=== PATIENT | male | born 1965 | race Caucasian/White ===

== ENCOUNTER 2016-11-20 16:44 | Emergency (ER) | payer MEDICAID, MEDICARE | END 2016-11-20 18:40 | disposition left against medical advice (07) | LOC: JP.ED 16:44 | DX: Z53.21 Procedure and treatment not carried out due to patient leaving prior to being seen by health care provider (principal) ==

== ENCOUNTER 2016-12-05 19:27 | Emergency (ER) | payer MEDICARE, MEDICAID ==
[2016-12-05 19:54] VITALS: BP 144/81
[2016-12-05] MEDS ORDERED: Acetaminophen/HYDROcodone 325-5 MG Tab PO ONE (20:38)
--- NOTE | 2016-12-05 20:46 | EDM.PDOC ---
ED HPI GENERAL MEDICAL PROBLEM - General Chief Complaint: General Stated Complaint: LEG/HIP PAIN Time Seen by Provider: 12/05/16 20:30 Source of Information: Reports: Patient History Limitations: Reports: No limitations - History of Present Illness INITIAL COMMENTS - FREE TEXT/NARRATIVE: right knee pain. this is a 51 year old male, who reports knee surgery on 2016, he had a total knee replacement. He ran out of pain pills, had been taking one hydrocodone two times a day, ran out of pills today. reports the surgery was good, except for a non healing area on the distal incision scar. Onset: gradual Duration: Week(s): Location: Reports: lower extremity, right Quality: Reports: Ache, Stabbing Severity: moderate Improves with: Reports: Medication Worsens with: Reports: Movement Context: Reports: Other (Right knee surgery) Associated Symptoms: Reports: denies other symptoms Treatments [employer]IAN: Reports: Acetaminophen knee Pain Score (Numeric/FACES): 5 - Related Data Allergies Allergy/AdvReac Type Severity Reaction Status Date / Time naproxen Allergy Severe Airway Verified 10/10/16 05:43 Tightness Penicillins Allergy Severe Airway Verified 10/10/16 05:43 Tightness Home Meds: Home Meds Albuterol Sulfate [Proair Hfa] 2 puff IH Q4HR PRN 07/15/14 [History] Chlorthalidone 25 mg PO DAILY 07/15/14 [History] Omeprazole [Prilosec] 20 mg PO DAILY 07/15/14 [History] Clopidogrel Bisulfate 1 tab PO DAILY 05/03/16 [History] Aspirin [Halfprin] 81 mg PO DAILY 09/06/16 [History] Cyclobenzaprine [Flexeril] 10 mg PO TID PRN 09/06/16 [History] Diclofenac Potassium [Cataflam] 50 mg PO TIDMEALS 09/06/16 [History] Potassium Chloride [Klor-Con 10] 40 meq PO DAILY 09/06/16 [History] SUMAtriptan [Imitrex] 50 mg PO ONETIME PRN 09/06/16 [History] Trolamine Salicylate [Pain Relieving] 85 gm TP ASDIRECTED 09/06/16 [History] atorvaSTATin [Lipitor] 40 mg PO BEDTIME 09/06/16 [History] Albuterol [Proventil] 2.5 mg INH QIDRT 10/06/16 [History] Cetirizine [ZyrTEC] 10 mg PO DAILY tablet 10/12/16 [Rx] Metoprolol Tartrate [Lopressor] 25 mg PO BID tablet 10/12/16 [Rx] Acetaminophen/HYDROcodone [[place] 325-5 MG] 1 tab PO Q4H PRN #90 tab 10/20/16 [Rx ] Aspirin/Calcium Carbonate/Mag [Aspirin Buffered 325 mg Tab] 325 mg PO DAILY #30 tablet 10/20/16 [Rx] Sulfamethoxazole/Trimethoprim [Bactrim Ds Tablet] 1 each PO BID #14 tablet 10/20 [Rx] Past Medical History HEENT History: Reports: Allergic rhinitis, Head, Impaired vision, Otitis media Other HEENT History: 1 week ago Cardiovascular History: Reports: Congenital septal defect, Heart murmur, High cholesterol, Hypertension, SOB on exertion, Stents Respiratory History: Reports: Asthma, Bronchitis, recurrent, COPD, Pneumonia, recurrent Gastrointestinal History: Reports: Colon polyp, GERD Musculoskeletal History: Reports: Arthritis, Back pain, chronic, Fracture, Osteoarthritis Neurological History: Reports: Concussion, Seizure, Other (see below) Other Neuro History: coma x2 1975 1976 Psychiatric History: Reports: Addiction, Anxiety Endocrine/Metabolic History: Reports: Obesity/BMI 30+ Dermatologic History: Reports: None - Infectious Disease History Infectious Disease History: Reports: Chicken pox - Past Surgical History Head Surgeries/Procedures: Reports: None HEENT Surgical History: Reports: Oral surgery, Other (see below) Other HEENT Surgeries/Procedures: shattered jaw-wired shut(1976) Other Cardiovascular Surgeries/Procedures: 2015 stent in right leg had blood clot GI Surgical History: Reports: None, Colonoscopy, EGD, Polypectomy Musculoskeletal Surgical History: Reports: Knee replacement Dermatological Surgical History: Reports: None Social & Family History - Family History Family Medical History: Noncontributory - Tobacco Use Smoking Status *Q: Current Every Day Smoker Years of Tobacco use: 20 Packs/Tins Daily: 0.5 Used Tobacco, but Quit: No Second Hand Smoke Exposure: Yes - Caffeine Use Caffeine Use: Reports: Coffee, Soda - Alcohol Use Days Per Week of Alcohol Use: 7 Number of Drinks Per Day: 4 Total Drinks Per Week: 28 - Recreational Drug Use Recreational Drug Use: No Drug Use in Last 12 Months: Yes Recreational Drug Type: Reports: Methamphetamine Other Recreational Drug Type: stopped 7 months ago Recreational Drug Use Frequency: Not Used In Over 6 Months Recreational Drug Last Use: 7 YEARS ED ROS GENERAL - Review of Systems Review Of Systems: ROS reveals no pertinent complaints other than HPI. ED EXAM, GENERAL - Physical Exam Exam: See Below Exam Limited By: No limitations General Appearance: alert, WD/WN, mild distress Eye Exam: bilateral eye: normal inspection Ears: normal external exam Nose: normal inspection Throat/Mouth: Normal inspection, Normal lips Head: atraumatic, normocephalic Neck: normal inspection Respiratory/Chest: no respiratory distress, lungs clear, normal breath sounds, no accessory muscle use Cardiovascular: normal peripheral pulses, regular rate, rhythm, no edema, no murmur, no rub Extremities: leg pain (well healed incision to right knee, with distal scab at tip of incision, no active drainage) Neurological: alert, oriented, normal gait, no motor/sensory deficits Psychiatric: normal affect, normal mood Skin Exam: Warm, Dry, Wound/incision (well healed incision noted. dry, clean and intact) Lymphatic: no adenopathy Course - Vital Signs Last Recorded V/S: Last Vital Signs Temp 37.3 C 12/05/16 19:58 Pulse 106 H 12/05/16 19:58 Resp 18 12/05/16 19:58 BP 144/81 H 12/05/16 19:58 Pulse Ox 96 12/05/16 19:58 - Orders/Labs/Meds Meds: Medications Discontinued Medications Generic Name Dose Route Start Last Admin Trade Name Marioq PRN Reason Stop Dose Admin Acetaminophen/Hydrocodone Bitart 1 tab 12/05/16 20:38 12/05/16 21:05 [place] 325-5 Mg PO 12/05/16 20:39 1 tab ONETIME ONE Administration Departure - Departure Time of Disposition: 21:06 Disposition: Home, Self-Care 01 Condition: good Clinical Impression: Knee pain, right anterior, Status post right knee replacement, Status post total right knee replacement Instructions: Knee Pain Referrals: Delroy Moya PA [Primary Care Provider] - Forms: ED Department Discharge Care Plan Goals: right anterior knee pain status post right knee replacement -hydrocodone 5-325mg one tablet every 4 to 6 hours as needed for pain #10 -rest -take medication as prescribed -return to clinic or ER for any fever 101, shaking chills, drainage from incision, increased redness or any concerns. Keep appointment with Orthopedics on . - Problem List & Annotations (1) Knee pain, right anterior SNOMED Code(s): 370719582 Code(s): M25.561 - PAIN IN RIGHT KNEE Status: Acute Priority: Medium (2) Status post total right knee replacement SNOMED Code(s): 9192053924918 Code(s): Z96.651 - PRESENCE OF RIGHT ARTIFICIAL KNEE JOINT Status: Acute Priority: Medium - Problem List Review Problem List Initiated/Reviewed/Updated: Yes - Assessment/Plan Plan: right anterior knee pain status post knee replacement -Hydrocodone 5-325mg one every 4 to 6 hrs as needed for pain #10 -rest -take medication as prescribed -return to clinic or ER for any fever 101, shaking chills, drainage from incision, increased redness or any concerns. Keep appointment with Orthopedics on .
== END 2016-12-05 21:06 | disposition home or self-care (01) ==
LOC: JP.ED 19:27
DX: M25.561 Pain in right knee (principal); E78.00 Pure hypercholesterolemia, unspecified; F17.210 Nicotine dependence, cigarettes, uncomplicated; K21.9 Gastro-esophageal reflux disease without esophagitis; Z96.651 Presence of right artificial knee joint; Z88.8 Allergy status to other drugs, medicaments and biological substances; Z88.0 Allergy status to penicillin; Z79.899 Other long term (current) drug therapy; Z79.82 Long term (current) use of aspirin; Z95.5 Presence of coronary angioplasty implant and graft
CPT/HCPCS: 99283; A9270

== ENCOUNTER 2016-12-17 19:28 | Emergency (ER) | payer MEDICARE, MEDICAID | END 2016-12-17 21:03 | disposition left against medical advice (07) | LOC: JP.ED 19:28 | DX: Z53.21 Procedure and treatment not carried out due to patient leaving prior to being seen by health care provider (principal) ==

== ENCOUNTER 2017-07-08 17:35 | Emergency (ER) | payer MEDICARE, MEDICAID ==
[2017-07-08] MEDS ORDERED: Ondansetron 4 MG/2 ML SDV IVPUSH ONE ×2 (18:17→18:20)
[2017-07-08] MEDS ORDERED: SUMAtriptan 6 MG/0.5 ML SDV SUBCUT ONE ×2 (18:21→20:16)
[2017-07-08] MEDS ORDERED: diphenhydrAMINE 50 MG/ML SDV IVPUSH ONE (18:23)
--- NOTE | 2017-07-08 18:28 | EDM.PDOC ---
ED HPI GENERAL MEDICAL PROBLEM - General Chief Complaint: Headache Stated Complaint: STOMACH ACHE AND THROWING UP Time Seen by Provider: 07/08/17 18:06 Source of Information: Reports: Patient History Limitations: Reports: No Limitations - History of Present Illness INITIAL COMMENTS - FREE TEXT/NARRATIVE: Jackson presents today with complaint of migraine headache starting at 1430 today. He states he was out in the yard doing yard work and developed a migraine to the frontal area of his head. He tried to lay down in the house but there were too many people in the house being loud and his migraine would not go away. He reports he has had migraines in the past that he took imitrex for. Onset: Today, Sudden Onset Date: 07/08/17 Onset Time: 14:30 Duration: Hour(s): Location: Reports: Head, Other (Across forehead) Quality: Reports: Ache, Throbbing Severity: Moderate Improves with: Reports: None Worsens with: Reports: None Headache Pain Score (Numeric/FACES): 10 - Related Data Allergies Allergy/AdvReac Type Severity Reaction Status Date / Time naproxen Allergy Severe Airway Verified 07/08/17 17:53 Tightness Penicillins Allergy Severe Airway Verified 07/08/17 17:53 Tightness Home Meds: Home Meds Albuterol Sulfate [Proair Hfa] 2 puff IH Q4HR PRN 07/15/14 [History] Omeprazole [Prilosec] 20 mg PO DAILY 07/15/14 [History] Clopidogrel Bisulfate 1 tab PO DAILY 05/03/16 [History] Aspirin [Halfprin] 81 mg PO DAILY 09/06/16 [History] Potassium Chloride [Klor-Con 10] 40 meq PO DAILY 09/06/16 [History] Trolamine Salicylate [Pain Relieving] 85 gm TP ASDIRECTED 09/06/16 [History] atorvaSTATin [Lipitor] 40 mg PO DAILY 09/06/16 [History] Albuterol [Proventil] 2.5 mg INH QIDRT 10/06/16 [History] Cetirizine [ZyrTEC] 10 mg PO DAILY tablet 10/12/16 [Rx] Metoprolol Tartrate [Lopressor] 25 mg PO BID tablet 10/12/16 [Rx] Acetaminophen/HYDROcodone [[place] 325-5 MG] 1 tab PO Q4H PRN #90 tab 10/20/16 [Rx ] Past Medical History HEENT History: Reports: Allergic Rhinitis, Head, Impaired Vision, Otitis Media Other HEENT History: 1 week ago Cardiovascular History: Reports: Congenital Septal Defect, Heart Murmur, High Cholesterol, Hypertension, SOB on Exertion, Stents Respiratory History: Reports: Asthma, Bronchitis, Recurrent, COPD, Pneumonia, Recurrent Gastrointestinal History: Reports: Colon Polyp, GERD Musculoskeletal History: Reports: Arthritis, Back Pain, Chronic, Fracture, Osteoarthritis Neurological History: Reports: Concussion, Migraines, Seizure, Other (See Below) Other Neuro History: coma x2 1976 1976 Psychiatric History: Reports: Addiction, Anxiety Endocrine/Metabolic History: Reports: Obesity/BMI 30+ Dermatologic History: Reports: None - Infectious Disease History Infectious Disease History: Reports: Chicken Pox - Past Surgical History HEENT Surgical History: Reports: Oral Surgery, Other (See Below) Cardiovascular Surgical History: Reports: Vascular Surgery, Other (See Below) Musculoskeletal Surgical History: Reports: Knee Replacement Dermatological Surgical History: Reports: None Social & Family History - Family History Family Medical History: Noncontributory - Tobacco Use Smoking Status *Q: Current Every Day Smoker Years of Tobacco use: 45 Packs/Tins Daily: 1 Used Tobacco, but Quit: No Second Hand Smoke Exposure: Yes - Caffeine Use Caffeine Use: Reports: Soda - Alcohol Use Days Per Week of Alcohol Use: 7 Number of Drinks Per Day: 4 Total Drinks Per Week: 28 - Recreational Drug Use Recreational Drug Use: Yes Drug Use in Last 12 Months: Yes Recreational Drug Type: Reports: Marijuana/Hashish Other Recreational Drug Type: stopped 7 months ago Recreational Drug Use Frequency: Not Used In Over 6 Months Recreational Drug Last Use: 7 YEARS ED ROS GENERAL - Review of Systems Review Of Systems: See Below Constitutional: Denies: Fever, Chills, Malaise, Weakness HEENT: Denies: Dental Pain, Ear Pain, Rhinitis, Sinus Problem, Throat Pain, Vertigo, Vision Change Respiratory: Denies: Shortness of Breath, Wheezing, Cough, Sputum Cardiovascular: Denies: Chest Pain, Dyspnea on Exertion, Edema, Lightheadedness , Palpitations, PND, Syncope Endocrine: Reports: No Symptoms GI/Abdominal: Reports: Nausea, Vomiting : Reports: No Symptoms Musculoskeletal: Reports: No Symptoms Skin: Reports: No Symptoms Neurological: Reports: Headache, Numbness, Tingling, Other (down bilateral arms. ) Psychiatric: Reports: No Symptoms Hematologic/Lymphatic: Reports: No Symptoms Immunologic: Reports: No Symptoms - Physical Exam Exam: See Below Text/Narrative:: Jackson is an alert, oriented 52 year old male presenting with sudden onset migraine to the frontal area today at 1430 while working in the yard. He denies trauma or injury. He has nausea, vomiting, photosensitivity and numbness/tingling to bilateral arms since vomiting started. Patient has extensive history including PAD, HTN, COPD, Dyslipidemia, Tobacco dependence, past methamphetamine use. Exam Limited By: No Limitations General Appearance: Alert, WD/WN, Moderate Distress Eye Exam: Bilateral Eye: EOMI, Normal Inspection, PERRL, Other (No nystagmus noted with position changes. ) Ears: Normal External Exam, Normal Canal, Hearing Grossly Normal, Normal TMs Nose: Normal Inspection, Normal Mucosa, No Blood Throat/Mouth: Normal Inspection, Normal Lips, Normal Oropharynx, Normal Voice, No Airway Compromise Head Exam: Atraumatic, Normocephalic Neck: Normal Inspection, Supple, Non-Tender, Full Range of Motion. No: Lymphadenopathy (R), Lymphadenopathy (L) Respiratory/Chest: No Respiratory Distress, No Accessory Muscle Use, Chest Non- Tender, Decreased Breath Sounds, Other (Scattered rhonchi noted) Cardiovascular: Normal Peripheral Pulses, Regular Rate, Rhythm, No Edema, No Murmur, No Rub GI/Abdominal: Normal Bowel Sounds, Soft, No Distention, No Mass, Other (large, obese, tenderness to LUQ with palpation) Neuro Exam (Abbreviated): Alert, Oriented, CN II-XII Intact, Normal Cognition, Normal Gait, No Motor/Sensory Deficits, Other (GCS 15, equal strength to all extremities. ) Back Exam: Normal Inspection, Full Range of Motion. No: CVA Tenderness (R), CVA Tenderness (L) Extremities: Normal Inspection, Normal Range of Motion, Non-Tender, No Pedal Edema, Normal Capillary Refill Psychiatric: Normal Affect, Normal Mood Skin Exam: Warm, Dry, Intact, Normal Color, No Rash EKG INTERPRETATION EKG Date: 07/08/17 Time: 18:30 Rhythm: NSR [place]: Normal P-Wave: Present QRS: Normal ST-T: Other (Slight depression lateral leads, similar to EKG completed on 2015) Course - Vital Signs Last Recorded V/S: Last Vital Signs Temp 36.3 C 07/08/17 20:28 Pulse 86 07/08/17 21:03 Resp 20 07/08/17 21:03 BP 133/77 07/08/17 21:03 Pulse Ox 94 L 07/08/17 21:03 - Orders/Labs/Meds Orders: Active Orders 24 hr Category Date Time Status EKG Documentation Completion [RC] ASDIRECTED Care 07/08/17 18:28 Active Head wo Cont [CT] Stat Exams 07/08/17 18:49 Taken EKG 12 Lead [EK] Routine Ther 07/08/17 18:28 Ordered Labs: Laboratory Tests 07/08/17 07/08/17 07/08/17 Range/Units 18:31 18:31 18:31 WBC 12.7 H (4.5-11.0) K/uL RBC 4.84 (4.30-5.90) M/uL Hgb 15.1 H D (12.0-15.0) g/dL Hct 44.1 (40.0-54.0) % MCV 91 (80-98) fL MCH 31 (27-31) pg MCHC 34 (32-36) % Plt Count 274 (150-400) K/uL Neut % (Auto) 70 H (36-66) % Lymph % (Auto) 19 L (24-44) % [place] % (Auto) 9 H (2-6) % Eos % (Auto) 1 L (2-4) % Baso % (Auto) 0 (0-1) % PT (9.5-12.0) sec INR (0.80-1.20) APTT (27.0-36.0) sec Sodium 138 L (140-148) mmol/L Potassium 3.2 L (3.6-5.2) mmol/L Chloride 101 (100-108) mmol/L Carbon Dioxide 28 (21-32) mmol/L Anion Gap 12.2 (5.0-14.0) mmol/L BUN 10 D (7-18) mg/dL Creatinine 1.2 (0.8-1.3) mg/dL Est Cr Clr Drug Dosing 59.61 mL/min Estimated GFR (MDRD) > 60 (>60) Glucose 133 H (74-106) mg/dL Calcium 8.8 (8.5-10.1) mg/dL Magnesium 1.2 L (1.8-2.4) mg/dL Total Bilirubin 0.4 (0.2-1.0) mg/dL AST 54 H (15-37) U/L ALT 80 H (12-78) U/L Alkaline Phosphatase 75 D (46-116) U/L Troponin I (0.000-0.056) ng/mL Total Protein 7.0 (6.4-8.2) g/dL Albumin 3.6 (3.4-5.0) g/dL Globulin 3.4 (2.3-3.5) g/dL Albumin/Globulin Ratio 1.1 L (1.2-2.2) Urine Color Urine Appearance Urine pH (4.5-8.0) Ur Specific [place] (1.008-1.030) Urine Protein (NEGATIVE) mg/dL Urine Glucose (UA) (NEGATIVE) mg/dL Urine Ketones (NEGATIVE) mg/dL Urine Occult Blood (NEGATIVE) Urine Nitrite (NEGAITVE) Urine Bilirubin (NEGATIVE) Urine Urobilinogen (NORMAL) mg/dL Ur Leukocyte Esterase (NEGATIVE) Urine RBC (0-5) Urine WBC (0-5) Ur Epithelial Cells Amorphous Sediment Urine Bacteria Urine Mucus Urine Other 07/08/17 07/08/17 07/08/17 Range/Units 18:54 18:54 21:03 WBC (4.5-11.0) K/uL RBC (4.30-5.90) M/uL Hgb (12.0-15.0) g/dL Hct (40.0-54.0) % MCV (80-98) fL MCH (27-31) pg MCHC (32-36) % Plt Count (150-400) K/uL Neut % (Auto) (36-66) % Lymph % (Auto) (24-44) % [place] % (Auto) (2-6) % Eos % (Auto) (2-4) % Baso % (Auto) (0-1) % PT 10.6 (9.5-12.0) sec INR 0.99 (0.80-1.20) APTT 23.8 L (27.0-36.0) sec Sodium (140-148) mmol/L Potassium (3.6-5.2) mmol/L Chloride (100-108) mmol/L Carbon Dioxide (21-32) mmol/L Anion Gap (5.0-14.0) mmol/L BUN (7-18) mg/dL Creatinine (0.8-1.3) mg/dL Est Cr Clr Drug Dosing mL/min Estimated GFR (MDRD) (>60) Glucose (74-106) mg/dL Calcium (8.5-10.1) mg/dL Magnesium (1.8-2.4) mg/dL Total Bilirubin (0.2-1.0) mg/dL AST (15-37) U/L ALT (12-78) U/L Alkaline Phosphatase (46-116) U/L Troponin I < 0.017 (0.000-0.056) ng/mL Total Protein (6.4-8.2) g/dL Albumin (3.4-5.0) g/dL Globulin (2.3-3.5) g/dL Albumin/Globulin Ratio (1.2-2.2) Urine Color Yellow Urine Appearance Clear Urine pH 6.0 (4.5-8.0) Ur Specific [place] 1.020 (1.008-1.030) Urine Protein Negative (NEGATIVE) mg/dL Urine Glucose (UA) Normal (NEGATIVE) mg/dL Urine Ketones Negative (NEGATIVE) mg/dL Urine Occult Blood Negative (NEGATIVE) Urine Nitrite Negative (NEGAITVE) Urine Bilirubin Negative (NEGATIVE) Urine Urobilinogen Normal (NORMAL) mg/dL Ur Leukocyte Esterase Negative (NEGATIVE) Urine RBC 0-5 (0-5) Urine WBC 0-5 (0-5) Ur Epithelial Cells Few Amorphous Sediment Not seen Urine Bacteria Rare Urine Mucus Moderate Urine Other Lab work reviewed, CT head pending. Will administer magnesium IV. Influenza screen negative. Meds: Medications Discontinued Medications Generic Name Dose Route Start Last Admin Trade Name Freq PRN Reason Stop Dose Admin Diphenhydramine HCl 25 mg 07/08/17 18:23 07/08/17 18:36 Benadryl IVPUSH 07/08/17 18:24 25 mg ONETIME ONE Administration Hydromorphone HCl 0.5 mg 07/08/17 19:24 07/08/17 19:34 Dilaudid IVPUSH 07/08/17 19:25 0.5 mg ONETIME ONE Administration Sodium Chloride 1,000 mls @ 1,000 mls/hr 07/08/17 18:30 07/08/17 18:31 Normal Saline IV 1,000 mls/hr ASDIRECTED JASMIN Administration Magnesium Sulfate 2 gm/ Premix 50 mls @ 12.5 mls/hr 07/08/17 19:12 07/08/17 19:22 IV 07/08/17 23:11 12.5 mls/hr ONETIME ONE Administration Sodium Chloride 1,000 mls @ 1,000 mls/hr 07/08/17 20:15 07/08/17 20:12 Normal Saline IV 1,000 mls/hr ASDIRECTED JASMIN Administration Ketorolac Tromethamine 30 mg 07/08/17 20:07 07/08/17 20:13 Toradol IVPUSH 07/08/17 20:08 30 mg ONETIME ONE Administration Metoclopramide HCl 5 mg 07/08/17 19:23 07/08/17 19:33 Reglan IV 07/08/17 19:24 5 mg NOW STA Administration Ondansetron HCl 4 mg 07/08/17 18:20 07/08/17 18:39 Zofran IVPUSH 07/08/17 18:21 4 mg ONETIME ONE Administration Sumatriptan Succinate 6 mg 07/08/17 18:21 Imitrex SUBCUT 07/08/17 18:22 ONETIME ONE Sumatriptan Succinate 6 mg 07/08/17 20:16 07/08/17 20:26 Imitrex SUBCUT 07/08/17 20:17 6 mg ONETIME ONE Administration - Radiology Interpretation CT Results Date: 07/08/17 (Head CT negative. ) - Re-Assessments/Exams Free Text/Narrative Re-Assessment/Exam: 07/08/17 20:07 Patient sleeping, easily aroused, reports continued migraine. Imitrex ordered. 07/08/17 20:35 Patient reports improvement in migraine. Departure - Departure Time of Disposition: 20:54 Disposition: Home, Self-Care 01 Condition: Fair Clinical Impression: Migraine - Discharge Information Instructions: Migraine Headache, [id number] Referrals: Delroy Moya PA [Primary Care Provider] - Forms: ED Department Discharge Additional Instructions: You have been treated for a migraine with nausea and vomiting. The CT of your head was negative for acute findings. Your EKG tracing of your heart has no changes when compared to the one you had completed August,. You have been given several medications for nausea and pain. It is best for you to go to bed when you get home, rest in a cool dark place. You may take promethazien 25mg by mouth twice per day as needed for nausea. Take acetaminophen for pain as needed. Follow up with your primary provider tomorrow for further management if needed. It is in your best interest to stop drinking soda pop, alcohol and use of tobacco. Return for worsening issues or concerns. - My Orders Last 24 Hours: My Active Orders 07/08/17 18:28 EKG Documentation Completion [RC] ASDIRECTED EKG 12 Lead [EK] Routine 07/08/17 18:49 Head wo Cont [CT] Stat - Assessment/Plan Last 24 Hours: My Active Orders 07/08/17 18:28 EKG Documentation Completion [RC] ASDIRECTED EKG 12 Lead [EK] Routine 07/08/17 18:49 Head wo Cont [CT] Stat Assessment:: Migraine Nausea, vomiting Plan: Patient treated for a migraine with nausea and vomiting. The CT of head was negative for acute findings. EKG tracing of your heart has no changes when compared to the one completed August,. It is best for patient to go to bed when he gets home, rest in a cool dark place. He may take promethazien 25mg by mouth twice per day as needed for nausea. Take acetaminophen for pain as needed. Follow up with his primary provider tomorrow for further management. It is in his best interest to stop drinking soda pop, alcohol and use of tobacco. Return for worsening issues or concerns.
[2017-07-08] MEDS ORDERED: Sodium Chloride 0.9% 1,000 ML IV SCH ×2 (18:30→20:15)
[2017-07-08] MEDS ORDERED: Magnesium Sulfate/Water 2 GM in Premix Bag 1 BAG IV ONE (19:12)
[2017-07-08] MEDS ORDERED: Metoclopramide 10 MG/2 ML SDV IV STA (19:23)
[2017-07-08] MEDS ORDERED: HYDROmorphone 0.5 MG/0.5 ML Syringe IVPUSH ONE (19:24)
[2017-07-08] MEDS ORDERED: Ketorolac 30 MG/ML SDV IVPUSH ONE (20:07)
[2017-07-08 21:04] VITALS: BP 133/77
== END 2017-07-08 21:10 | disposition home or self-care (01) ==
LOC: JP.ED 17:35
DX: G43.909 Migraine, unspecified, not intractable, without status migrainosus (principal); I10 Essential (primary) hypertension; F17.210 Nicotine dependence, cigarettes, uncomplicated; J44.9 Chronic obstructive pulmonary disease, unspecified; E78.00 Pure hypercholesterolemia, unspecified; Z88.0 Allergy status to penicillin; Z86.69 Personal history of other diseases of the nervous system and sense organs; Z88.8 Allergy status to other drugs, medicaments and biological substances; Z79.82 Long term (current) use of aspirin
CPT/HCPCS: 36415; 70450; 80053; 81001; 83735; 84484; 85025; 85610; 85730; 87804; 93005; 93010; 96361; 96365; 96366; 96372; 96375; 99285; J1170; J1200; J1885; J2405; J2765; J3030; J3475; J7040; 99284

== ENCOUNTER 2017-09-19 17:34 | Emergency (ER) | payer MEDICARE, MEDICAID ==
[2017-09-19 17:46] VITALS: BP 155/68
[2017-09-19] MEDS ORDERED: Acetaminophen 500 MG Tab PO ONE (18:33)
--- NOTE | 2017-09-19 18:40 | EDM.PDOC ---
ED HPI GENERAL MEDICAL PROBLEM - General Chief Complaint: General Stated Complaint: FINGERS NUMB Time Seen by Provider: 09/19/17 18:19 Source of Information: Reports: Patient History Limitations: Reports: No Limitations - History of Present Illness INITIAL COMMENTS - FREE TEXT/NARRATIVE: This patient comes in complaining that his hands and upper lip are numb. This is been going on for couple of hours started hour after he was pushing a car out of the snow. He indicates that he was pushing from behind and the motion he shows shows his wrists are hyper extended. He says it's just the palms of both hands that are numb area he certain he didn't get frostbite. He says there is a place on his left side of the upper lip that is numb almost like he got a shot of Novocain. He also complains of a headache. He said several months ago he had something similar and was in the ER had a big workup and was told that it was stress. - Related Data Allergies Allergy/AdvReac Type Severity Reaction Status Date / Time naproxen Allergy Severe Airway Verified 09/19/17 17:58 Tightness Penicillins Allergy Severe Airway Verified 09/19/17 17:58 Tightness Home Meds: Home Meds Albuterol Sulfate [Proair Hfa] 2 puff IH Q4HR PRN 07/15/14 [History] Omeprazole [Prilosec] 20 mg PO DAILY 07/15/14 [History] Clopidogrel Bisulfate 1 tab PO DAILY 05/03/16 [History] Aspirin [Halfprin] 81 mg PO DAILY 09/06/16 [History] Potassium Chloride [Klor-Con 10] 40 meq PO DAILY 09/06/16 [History] Trolamine Salicylate [Pain Relieving] 85 gm TP ASDIRECTED 09/06/16 [History] atorvaSTATin [Lipitor] 40 mg PO DAILY 09/06/16 [History] Cetirizine [ZyrTEC] 10 mg PO DAILY tablet 10/12/16 [Rx] Metoprolol Tartrate [Lopressor] 25 mg PO BID tablet 10/12/16 [Rx] Past Medical History HEENT History: Reports: Allergic Rhinitis, Head, Impaired Vision, Otitis Media Other HEENT History: 1 week ago Cardiovascular History: Reports: Congenital Septal Defect, Heart Murmur, High Cholesterol, Hypertension, SOB on Exertion, Stents Respiratory History: Reports: Asthma, Bronchitis, Recurrent, COPD, Pneumonia, Recurrent Gastrointestinal History: Reports: Colon Polyp, GERD Musculoskeletal History: Reports: Arthritis, Back Pain, Chronic, Fracture, Osteoarthritis Neurological History: Reports: Concussion, Migraines, Seizure, Other (See Below) Other Neuro History: coma x2 1976 1976 Psychiatric History: Reports: Addiction, Anxiety Endocrine/Metabolic History: Reports: Obesity/BMI 30+ Dermatologic History: Reports: None - Infectious Disease History Infectious Disease History: Reports: Chicken Pox - Past Surgical History Head Surgeries/Procedures: Reports: None HEENT Surgical History: Reports: Oral Surgery, Other (See Below) Cardiovascular Surgical History: Reports: Vascular Surgery, Other (See Below) Musculoskeletal Surgical History: Reports: Knee Replacement Social & Family History - Family History Family Medical History: Noncontributory - Tobacco Use Smoking Status *Q: Light Tobacco Smoker Years of Tobacco use: 30 Packs/Tins Daily: 0.5 Used Tobacco, but Quit: No Second Hand Smoke Exposure: Yes - Caffeine Use Caffeine Use: Reports: Soda - Alcohol Use Days Per Week of Alcohol Use: 3 Number of Drinks Per Day: 5 Total Drinks Per Week: 15 - Recreational Drug Use Recreational Drug Use: No Drug Use in Last 12 Months: Yes Recreational Drug Type: Reports: Marijuana/Hashish Other Recreational Drug Type: stopped 7 months ago Recreational Drug Use Frequency: Not Used In Over 6 Months Recreational Drug Last Use: 7 YEARS ED ROS GENERAL - Review of Systems Review Of Systems: See Below Constitutional: Reports: No Symptoms HEENT: Reports: No Symptoms Respiratory: Reports: No Symptoms Cardiovascular: Reports: No Symptoms Endocrine: Reports: No Symptoms GI/Abdominal: Reports: No Symptoms : Reports: No Symptoms Musculoskeletal: Reports: No Symptoms Skin: Reports: No Symptoms Neurological: Reports: Other (Numbness as previously noted. He denies any muscle strength. There is no difficulty walking, no loss of hand strength. No difficulty with speech and swallowing.) Psychiatric: Reports: No Symptoms ED EXAM, GENERAL - Physical Exam Exam: See Below Exam Limited By: No Limitations General Appearance: Alert, WD/WN, No Apparent Distress Eye Exam: Bilateral Eye: EOMI, PERRL Ears: Normal External Exam Nose: Normal Inspection Throat/Mouth: Normal Inspection, Normal Oropharynx Head: Atraumatic Neck: Normal Inspection Respiratory/Chest: Lungs Clear Cardiovascular: Regular Rate, Rhythm Peripheral Pulses: 2+: Radial (L), Radial (R) GI/Abdominal: Non-Tender Extremities: Normal Inspection, Other (Full range of motion of) Neurological: Alert, Oriented ( hands and wrists), CN II-XII Intact, Normal Gait , Other (He does have some sensation to the palms this is assisted numb tingly feeling. Normal function of radial ulnar and medial nerves at the wrist terms of motor function.) Course - Vital Signs Last Recorded V/S: Last Vital Signs Temp 36.4 C 09/19/17 17:58 Pulse 96 09/19/17 17:58 Resp 16 09/19/17 17:58 BP 155/68 H 09/19/17 17:58 Pulse Ox 94 L 09/19/17 17:58 - Orders/Labs/Meds Meds: Medications Discontinued Medications Generic Name Dose Route Start Last Admin Trade Name Guy PRN Reason Stop Dose Admin Acetaminophen 1,000 mg 09/19/17 18:33 Tylenol Extra Strength PO 09/19/17 18:34 ONETIME ONE Departure - Departure Time of Disposition: 18:40 Disposition: Home, Self-Care 01 Condition: Fair Clinical Impression: Median sensory neuropathy - Discharge Information Referrals: Delroy Moya PA [Primary Care Provider] - Additional Instructions: The numbness to your hands this most likely due to some stress on the median nerve as it goes through your wrist. This is basically the same as carpal tunnel syndrome but was most likely exacerbated by pushing the car today. Wear the wrist splints to keep your wrist straight. Applying some ice to the wrist may help a little bit. The best thing right now is just rest. For pain he can take Tylenol or acetaminophen. Avoid the ibuprofen due to your other medical problems. Follow-up with your health care provider tomorrow morning if you're not getting better. Return to the ER if you think your symptoms are getting worse or if new symptoms develop
== END 2017-09-19 18:51 | disposition home or self-care (01) ==
LOC: JP.ED 17:34
DX: G56.13 Other lesions of median nerve, bilateral upper limbs (principal); Z88.0 Allergy status to penicillin; Z88.8 Allergy status to other drugs, medicaments and biological substances; Z79.82 Long term (current) use of aspirin; Z79.899 Other long term (current) drug therapy; F17.210 Nicotine dependence, cigarettes, uncomplicated
CPT/HCPCS: 99283; A9270; 99282

== ENCOUNTER 2019-01-25 17:39 | Emergency (ER) | payer MEDICARE, MEDICAID ==
[2019-01-25 18:17] VITALS: BP 131/83
[2019-01-25] MEDS ORDERED: Ketorolac 60 MG/2 ML SDV IM ONE (18:55)
--- NOTE | 2019-01-25 19:08 | EDM.PDOC ---
ED HPI GENERAL MEDICAL PROBLEM - General Chief Complaint: Upper Extremity Injury/Pain Stated Complaint: SHOULDER PAIN Time Seen by Provider: 01/25/19 18:30 Source of Information: Reports: Patient, Significant Other History Limitations: Reports: Altered Mental Status - History of Present Illness INITIAL COMMENTS - FREE TEXT/NARRATIVE: 54-year-old male complaining of right shoulder pain, arm numbness, and spots all over his body. He looks hyper dramatic and likely intoxicated with methamphetamines. He was in the clinic a week ago and had a shot in his shoulder as well as a shoulder x-ray. These were reviewed, the x-ray was normal and he had improvement in pain after 5 minutes. Despite his intense pain he is moving the shoulder freely and appears to have full range of motion. Onset: Unknown/Unsure - Related Data Allergies Allergy/AdvReac Type Severity Reaction Status Date / Time naproxen Allergy Severe Airway Verified 09/19/17 17:58 Tightness Penicillins Allergy Severe Airway Verified 09/19/17 17:58 Tightness Home Meds: Home Meds Albuterol Sulfate [Proair Hfa] 2 puff IH Q4HR PRN 07/15/14 [History] Omeprazole [Prilosec] 20 mg PO DAILY 07/15/14 [History] Clopidogrel Bisulfate 1 tab PO DAILY 05/03/16 [History] Aspirin [Halfprin] 81 mg PO DAILY 09/06/16 [History] Potassium Chloride [Klor-Con 10] 40 meq PO DAILY 09/06/16 [History] Trolamine Salicylate [Pain Relieving] 85 gm TP ASDIRECTED 09/06/16 [History] atorvaSTATin [Lipitor] 40 mg PO DAILY 09/06/16 [History] Cetirizine [ZyrTEC] 10 mg PO DAILY tablet 10/12/16 [Rx] Metoprolol Tartrate [Lopressor] 25 mg PO BID tablet 10/12/16 [Rx] Past Medical History HEENT History: Reports: Allergic Rhinitis, Head, Impaired Vision, Otitis Media Other HEENT History: 1 week ago Cardiovascular History: Reports: Congenital Septal Defect, Heart Murmur, High Cholesterol, Hypertension, SOB on Exertion, Stents Respiratory History: Reports: Asthma, Bronchitis, Recurrent, COPD, Pneumonia, Recurrent Gastrointestinal History: Reports: Colon Polyp, GERD Musculoskeletal History: Reports: Arthritis, Back Pain, Chronic, Fracture, Osteoarthritis Neurological History: Reports: Concussion, Migraines, Seizure, Other (See Below) Other Neuro History: coma x2 1976 1976 Psychiatric History: Reports: Addiction, Anxiety Endocrine/Metabolic History: Reports: Obesity/BMI 30+ Dermatologic History: Reports: None - Infectious Disease History Infectious Disease History: Reports: Chicken Pox - Past Surgical History Head Surgeries/Procedures: Reports: None HEENT Surgical History: Reports: Oral Surgery, Other (See Below) Cardiovascular Surgical History: Reports: Vascular Surgery, Other (See Below) Musculoskeletal Surgical History: Reports: Knee Replacement Social & Family History - Family History Family Medical History: Noncontributory - Tobacco Use Smoking Status *Q: Heavy Tobacco Smoker Years of Tobacco use: 1 Packs/Tins Daily: 1 - Caffeine Use Caffeine Use: Reports: Soda - Recreational Drug Use Recreational Drug Use: No Other Recreational Drug Type: couple of months ago smoking meth Review of Systems - Review of Systems Review Of Systems: See Below Constitutional: Denies: Fever Respiratory: Denies: Shortness of Breath Cardiovascular: Denies: Chest Pain GI/Abdominal: Denies: Abdominal Pain, Nausea, Vomiting Skin: Reports: Other (small spots all over his arms and abdomen which I do not see but the patient is complaining of) Psychiatric: Reports: Anxiety ED EXAM, GENERAL - Physical Exam Exam: See Below Exam Limited By: Other (patient is hyper dramatic and appears intoxicated with amphetamines) General Appearance: Alert, Anxious Head: Atraumatic Respiratory/Chest: No Respiratory Distress, Lungs Clear Cardiovascular: Regular Rate, Rhythm Extremities: Other (shoulders difficult to examine because even light palpation causes him to wince with discomfort.) Course - Vital Signs Last Recorded V/S: Last Vital Signs Temp 95.2 F L 01/25/19 18:15 Pulse 94 01/25/19 18:36 Resp 18 01/25/19 18:36 BP 131/83 01/25/19 18:36 Pulse Ox 95 01/25/19 18:36 - Orders/Labs/Meds Labs: Laboratory Tests 01/25/19 Range/Units 19:01 Urine Opiates Screen Negative (NEGATIVE) Ur Oxycodone Screen Negative (NEGATIVE) Urine Methadone Screen Negative (NEGATIVE) Ur Propoxyphene Screen Negative (NEGATIVE) Ur Barbiturates Screen Negative (NEGATIVE) Ur Tricyclics Screen Negative (NEGATIVE) Ur Phencyclidine Scrn Negative (NEGATIVE) Ur Amphetamine Screen Presumptive positive H (NEGATIVE) U Methamphetamines Scrn Presumptive positive H (NEGATIVE) Urine MDMA Screen Presumptive positive H (NEGATIVE) U Benzodiazepines Scrn Negative (NEGATIVE) U Cocaine Metab Screen Negative (NEGATIVE) U Marijuana (THC) Screen Negative (NEGATIVE) Meds: Medications Discontinued Medications Generic Name Dose Route Start Last Admin Trade Name Freq PRN Reason Stop Dose Admin Ketorolac Tromethamine 60 mg 01/25/19 18:55 01/25/19 19:07 Toradol IM 01/25/19 18:56 60 mg ONETIME ONE Administration - Re-Assessments/Exams Free Text/Narrative Re-Assessment/Exam: 01/25/19 19:30 patient was given an injection of Toradol 60 mg IM which also caused him extreme pain. A UA was obtained and was positive for amphetamines and methamphetamine. I asked the patient to recheck in 2-3 days after the drugs are clear from his system so we can more accurately assess his physical complaints. Departure - Departure Time of Disposition: 19:55 Disposition: Home, Self-Care 01 Clinical Impression: Methamphetamine intoxication Shoulder pain, right Qualifiers: Chronicity: unspecified Qualified Code(s): M25.511 - Pain in right shoulder - Discharge Information Instructions: Stimulant Use Disorder-Methamphetamines Referrals: PCP,None [Primary Care Provider] - Forms: ED Department Discharge Care Plan Goals: Avoid any amphetamine or methamphetamine and recheck your shoulder in the clinic next week.
== END 2019-01-25 19:56 | disposition home or self-care (01) ==
LOC: JP.ED 17:39
DX: M25.511 Pain in right shoulder (principal); J45.909 Unspecified asthma, uncomplicated; F17.210 Nicotine dependence, cigarettes, uncomplicated; K21.9 Gastro-esophageal reflux disease without esophagitis; Z79.899 Other long term (current) drug therapy; Z79.82 Long term (current) use of aspirin; Z88.0 Allergy status to penicillin; Z88.8 Allergy status to other drugs, medicaments and biological substances
CPT/HCPCS: 80305; 96372; 99283; J1885

== ENCOUNTER 2019-02-13 15:43 | Emergency (ER) | payer MEDICARE, MEDICAID ==
[2019-02-13 16:06] VITALS: BP 130/84
[2019-02-13] MEDS ORDERED: Ketorolac 60 MG/2 ML SDV IM ONE (16:51)
[2019-02-13] MEDS ORDERED: Acetaminophen/HYDROcodone 325-5 MG Tab PO ONE (16:52)
--- NOTE | 2019-02-13 16:55 | EDM.PDOC ---
<Ruben Peralta - Last Filed: 02/13/19 19:58> ED HPI GENERAL MEDICAL PROBLEM - General Chief Complaint: Upper Extremity Injury/Pain Stated Complaint: RIGHT SHOULDER PAIN Time Seen by Provider: 02/13/19 16:53 - Related Data Allergies Allergy/AdvReac Type Severity Reaction Status Date / Time naproxen Allergy Severe Airway Verified 02/13/19 16:05 Tightness Penicillins Allergy Severe Airway Verified 02/13/19 16:05 Tightness Home Meds: Home Meds Albuterol Sulfate [Proair Hfa] 2 puff IH Q4HR PRN 07/15/14 [History] Omeprazole [Prilosec] 20 mg PO DAILY 07/15/14 [History] Clopidogrel Bisulfate 1 tab PO DAILY 05/03/16 [History] Aspirin [Halfprin] 81 mg PO DAILY 09/06/16 [History] Potassium Chloride [Klor-Con 10] 40 meq PO DAILY 09/06/16 [History] Trolamine Salicylate [Pain Relieving] 85 gm TP ASDIRECTED 09/06/16 [History] atorvaSTATin [Lipitor] 40 mg PO DAILY 09/06/16 [History] Metoprolol Tartrate [Lopressor] 25 mg PO BID tablet 10/12/16 [Rx] Gabapentin [Neurontin] 300 mg PO TID PRN #14 cap 02/13/19 [Rx] tiZANidine [Zanaflex] 2 mg PO Q8H PRN 02/13/19 [History] Course - Vital Signs Text/Narrative:: 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 Will give a dose of gabapentin and an Rx for the same and have him follow up with his primary. X-ray reading is pending still, some degen changes noted by me. Last Recorded V/S: Last Vital Signs Temp 36.7 C 02/13/19 16:08 Pulse 86 02/13/19 16:08 Resp 22 H 02/13/19 16:08 BP 130/84 02/13/19 16:08 Pulse Ox 96 02/13/19 16:08 - Orders/Labs/Meds Labs: Laboratory Tests 02/13/19 Range/Units 18:57 Sodium 134 L (140-148) mmol/L Potassium 3.1 L (3.6-5.2) mmol/L Chloride 98 L (100-108) mmol/L Carbon Dioxide 23 (21-32) mmol/L Anion Gap 16.1 H (5.0-14.0) mmol/L BUN 14 (7-18) mg/dL Creatinine 1.3 (0.8-1.3) mg/dL Est Cr Clr Drug Dosing 51.67 mL/min Estimated GFR (MDRD) 57 L (>60) Glucose 97 (74-106) mg/dL Calcium 9.3 (8.5-10.1) mg/dL Meds: Medications Discontinued Medications Generic Name Dose Route Start Last Admin Trade Name Freq PRN Reason Stop Dose Admin Hydrocodone Bitart/Acetaminophen 1 tab 02/13/19 16:52 02/13/19 17:36 [place] 325-5 Mg PO 02/13/19 16:53 1 tab ONETIME ONE Administration Gabapentin 300 mg 02/13/19 19:41 02/13/19 19:59 Neurontin PO 02/13/19 19:42 300 mg ONETIME ONE Administration Ketorolac Tromethamine 60 mg 02/13/19 16:51 02/13/19 17:32 Toradol IM 02/13/19 16:52 60 mg ONETIME ONE Administration Lorazepam 0.5 mg 02/13/19 18:50 02/13/19 19:04 Ativan PO 02/13/19 18:51 0.5 mg ONETIME ONE Administration Tramadol HCl 50 mg 02/13/19 18:12 02/13/19 18:19 Ultram PO 02/13/19 18:13 50 mg ONETIME ONE Administration Departure - Departure Time of Disposition: 20:00 Disposition: Home, Self-Care 01 Condition: Fair Clinical Impression: Shoulder pain Qualifiers: Chronicity: acute Laterality: right Qualified Code(s): M25.511 - Pain in right shoulder Shoulder pain, right Qualifiers: Chronicity: unspecified Qualified Code(s): M25.511 - Pain in right shoulder - Discharge Information *PRESCRIPTION DRUG MONITORING PROGRAM REVIEWED*: No *COPY OF PRESCRIPTION DRUG MONITORING REPORT IN PATIENT CHECO: No Prescriptions: Gabapentin [Neurontin] 300 mg PO TID PRN #14 cap PRN Reason: Pain Instructions: Shoulder Pain, [id number] Referrals: Bryan Martinez MD [Primary Care Provider] - Forms: ED Department Discharge Additional Instructions: Rest the painful arm. Take gabapentin as directed. Add acetaminophen and/or ibuprofen per package instructions for extra relief as needed. See your family doctor for recheck early next week. <Ashley Nguyen - Last Filed: 02/14/19 14:09> ED HPI GENERAL MEDICAL PROBLEM - General Source of Information: Reports: Patient History Limitations: Reports: No Limitations - History of Present Illness INITIAL COMMENTS - FREE TEXT/NARRATIVE: pt has been unloading a trailer the last 2 days and he has increased pain in his rt shoulder. He has an appt to have his shoulder injected next week. He had xrays by Dr Martinez 2 days ago. He is using motrin 800 mg and he not getting relief of his pain with that. Onset: Today, Gradual Duration: Hour(s): Location: Reports: Upper Extremity, Right Associated Symptoms: Reports: No Other Symptoms Right Shoulder Pain Score (Numeric/FACES): 6 Past Medical History HEENT History: Reports: Allergic Rhinitis, Head, Impaired Vision, Otitis Media Other HEENT History: 1 week ago Cardiovascular History: Reports: Congenital Septal Defect, Heart Murmur, High Cholesterol, Hypertension, SOB on Exertion, Stents Respiratory History: Reports: Asthma, Bronchitis, Recurrent, COPD, Pneumonia, Recurrent Gastrointestinal History: Reports: Colon Polyp, GERD Musculoskeletal History: Reports: Arthritis, Back Pain, Chronic, Fracture, Osteoarthritis, Other (See Below) Other Musculoskeletal History: shoulder pain Neurological History: Reports: Concussion, Migraines, Seizure, Other (See Below) Other Neuro History: coma x2 1976 1976 Psychiatric History: Reports: Addiction, Anxiety Endocrine/Metabolic History: Reports: Obesity/BMI 30+ Dermatologic History: Reports: None - Infectious Disease History Infectious Disease History: Reports: Chicken Pox - Past Surgical History Head Surgeries/Procedures: Reports: None HEENT Surgical History: Reports: Oral Surgery, Other (See Below) Cardiovascular Surgical History: Reports: Vascular Surgery, Other (See Below) Musculoskeletal Surgical History: Reports: Knee Replacement Social & Family History - Family History Family Medical History: Noncontributory - Tobacco Use Smoking Status *Q: Current Every Day Smoker Years of Tobacco use: 40 Packs/Tins Daily: 0.5 - Caffeine Use Caffeine Use: Reports: Soda - Recreational Drug Use Recreational Drug Type: Reports: Methamphetamine Review of Systems - Review of Systems Review Of Systems: See Below Constitutional: Reports: No Symptoms Eyes: Reports: No Symptoms Ears: Reports: No Symptoms Nose: Reports: No Symptoms Mouth/Throat: Reports: No Symptoms Respiratory: Reports: No Symptoms Cardiovascular: Reports: No Symptoms GI/Abdominal: Reports: No Symptoms Genitourinary: Reports: Vaginal Bleeding Musculoskeletal: Reports: Other ( severe pain in the rt shoulder. He has been unloading a trailer. He does have a history of renal def. ) Neurological: Reports: Other (pt had numbness in the hand. ) ED EXAM, GENERAL - Physical Exam Exam: See Below Free Text/Narrative:: pt arrived with severe pain in the rt arm. He feels that it is weak. He is having severe pain in the arm. Exam Limited By: No Limitations General Appearance: Alert, Moderate Distress Ears: Normal TMs Nose: Normal Inspection Throat/Mouth: Normal Inspection Head: Atraumatic Neck: Normal Inspection Respiratory/Chest: No Respiratory Distress Cardiovascular: Regular Rate, Rhythm GI/Abdominal: Soft, Non-Tender (Male) Exam: Deferred Rectal (Males) Exam: Deferred Back Exam: Normal Inspection Extremities: Other (pain in the rt shoulder, he feels the arm is weak and this does appear to be the case. ) Neurological: Alert Psychiatric: Normal Affect Course - Orders/Labs/Meds Labs: Laboratory Tests 02/13/19 Range/Units 18:57 Sodium 134 L (140-148) mmol/L Potassium 3.1 L (3.6-5.2) mmol/L Chloride 98 L (100-108) mmol/L Carbon Dioxide 23 (21-32) mmol/L Anion Gap 16.1 H (5.0-14.0) mmol/L BUN 14 (7-18) mg/dL Creatinine 1.3 (0.8-1.3) mg/dL Est Cr Clr Drug Dosing 51.67 mL/min Estimated GFR (MDRD) 57 L (>60) Glucose 97 (74-106) mg/dL Calcium 9.3 (8.5-10.1) mg/dL - Re-Assessments/Exams Free Text/Narrative Re-Assessment/Exam: 02/13/19 18:56 pt has been given torodol,norco, followed by a tramodol and ativasn. 02/13/19 18:57 02/13/19 18:57 will obtain a cervical spine series.
[2019-02-13] MEDS ORDERED: traMADol 50 MG Tab PO ONE (18:12)
[2019-02-13] MEDS ORDERED: LORazepam 0.5 MG Tab PO ONE (18:50)
[2019-02-13] MEDS ORDERED: Gabapentin 300 MG Cap PO ONE (19:41)
--- NOTE | 2019-02-13 20:32 | CRLCR ---
INDICATION: Right arm pain. TECHNIQUE: AP and lateral view of the cervical spine. Flexion and extension lateral views obtained. FINDINGS: Suboptimal radiographs and patient positioning. The first 5 cervical vertebral bodies are moderately well seen on the lateral view. The superior aspect of C6 is visualized. There is spurring at C2, less so at C3, as well as at C4, C5, and C6. C7 is not well seen. Calcification within the anterior longitudinal ligament at C5-6. No fracture or prevertebral soft tissue swelling. The visualized cervical spine on the flexion and extension lateral views is negative for any significant abnormal motion. Clear lung apices. The medial clavicular heads are unremarkable. IMPRESSION: The included cervical spine is negative for fracture or acute malalignment. No prevertebral soft tissue swelling. No convincing evidence for abnormal motion on flexion or extension lateral views. Dictated by Josef Hankins MD @ Feb 13 2019 8:19PM Signed by Dr. Josef Hankins @ Feb 13 2019 8:30PM
== END 2019-02-13 20:08 | disposition home or self-care (01) ==
LOC: JP.ED 15:43
DX: M25.511 Pain in right shoulder (principal); I10 Essential (primary) hypertension; M19.90 Unspecified osteoarthritis, unspecified site; F17.210 Nicotine dependence, cigarettes, uncomplicated; Z88.0 Allergy status to penicillin; Z88.8 Allergy status to other drugs, medicaments and biological substances; Z79.82 Long term (current) use of aspirin; Z79.899 Other long term (current) drug therapy
CPT/HCPCS: 36415; 72050; 80048; 96372; 99283; A9270; J1885

== ENCOUNTER 2019-04-22 09:39 | Emergency (ER) | payer MEDICARE, MEDICAID ==
[2019-04-22] MEDS ORDERED: Sodium Chloride 0.9% 10 ML Syringe FLUSH PRN (11:03)
[2019-04-22] MEDS ORDERED: Ondansetron 4 MG/2 ML SDV IVPUSH ONE ×2 (11:03→12:56)
[2019-04-22] MEDS ORDERED: Sodium Chloride 0.9% 1,000 ML IV ONE (11:44)
[2019-04-22] MEDS ORDERED: Potassium Chloride 20 MEQ in Premix Bag 1 BAG IV ONE (11:45)
[2019-04-22 12:13] VITALS: BP 124/73; PULSE 68
--- NOTE | 2019-04-22 12:42 | CR ---
CHEST: 2 view CLINICAL HISTORY:Chest pain COMPARISON:2016 FINDINGS: The heart size, pulmonary vascular and hilar structures are normal. No infiltrate effusion or pneumothorax is seen. IMPRESSION: No acute cardiopulmonary process.
--- NOTE | 2019-04-22 16:29 | EDM.PDOC ---
ED HPI GENERAL MEDICAL PROBLEM - General Chief Complaint: Gastrointestinal Problem Stated Complaint: BAD HEADACHE, NAUSEA Time Seen by Provider: 04/22/19 10:54 Source of Information: Reports: Patient History Limitations: Reports: No Limitations - History of Present Illness INITIAL COMMENTS - FREE TEXT/NARRATIVE: This patient says that he has a headache and he is freezing all over. He vomited all night long. He thinks maybe he's had a fever. He: Complains of some upper abdominal pain. His headache is on the left side. He's little bit nauseated now. - Related Data Allergies Allergy/AdvReac Type Severity Reaction Status Date / Time naproxen Allergy Severe Airway Verified 02/13/19 16:05 Tightness Penicillins Allergy Severe Airway Verified 02/13/19 16:05 Tightness Home Meds: Home Meds Albuterol Sulfate [Proair Hfa] 2 puff IH Q4HR PRN 07/15/14 [History] Omeprazole [Prilosec] 20 mg PO DAILY 07/15/14 [History] Potassium Chloride [Klor-Con 10] 40 meq PO DAILY 09/06/16 [History] atorvaSTATin [Lipitor] 40 mg PO DAILY 09/06/16 [History] Metoprolol Tartrate [Lopressor] 25 mg PO BID tablet 10/12/16 [Rx] Chlorthalidone 25 mg PO DAILY 02/18/19 [History] Diclofenac Sodium [Voltaren 1% Gel] 1 cm TOP TID PRN 02/18/19 [History] Ibuprofen 800 mg PO Q8HR PRN 02/18/19 [History] Past Medical History HEENT History: Reports: Allergic Rhinitis, Head, Impaired Vision, Otitis Media Other HEENT History: 1 week ago Cardiovascular History: Reports: Congenital Septal Defect, Heart Murmur, High Cholesterol, Hypertension, SOB on Exertion, Stents Respiratory History: Reports: Asthma, Bronchitis, Recurrent, COPD, Pneumonia, Recurrent Gastrointestinal History: Reports: Colon Polyp, GERD Musculoskeletal History: Reports: Arthritis, Back Pain, Chronic, Fracture, Osteoarthritis, Other (See Below) Other Musculoskeletal History: shoulder pain Neurological History: Reports: Concussion, Migraines, Seizure, Other (See Below) Other Neuro History: coma x2 1976 1976 Psychiatric History: Reports: Addiction, Anxiety Endocrine/Metabolic History: Reports: Obesity/BMI 30+ Dermatologic History: Reports: None - Infectious Disease History Infectious Disease History: Reports: Chicken Pox - Past Surgical History Head Surgeries/Procedures: Reports: None HEENT Surgical History: Reports: Oral Surgery, Other (See Below) Cardiovascular Surgical History: Reports: Vascular Surgery Musculoskeletal Surgical History: Reports: Knee Replacement Social & Family History - Family History Family Medical History: Noncontributory - Tobacco Use Smoking Status *Q: Current Every Day Smoker Years of Tobacco use: 20 Packs/Tins Daily: 1 - Caffeine Use Caffeine Use: Reports: Soda - Recreational Drug Use Recreational Drug Use: Yes Recreational Drug Type: Reports: Methamphetamine Recreational Drug Use Frequency: Not Used In Over 2 Months ED ROS GENERAL - Review of Systems Review Of Systems: See Below Constitutional: Reports: Chills HEENT: Reports: No Symptoms Respiratory: Reports: No Symptoms Cardiovascular: Reports: No Symptoms Endocrine: Reports: No Symptoms GI/Abdominal: Reports: Vomiting. Denies: Diarrhea : Reports: No Symptoms Musculoskeletal: Reports: Other (Hurts all over) Skin: Reports: No Symptoms Neurological: Reports: No Symptoms Psychiatric: Reports: No Symptoms ED EXAM, GI/ABD - Physical Exam Exam: See Below General Appearance: Other (Difficult to examine him because he wants to lay on his left side the whole time) Eyes: Bilateral: Normal Appearance Ears: Normal External Exam, Normal TMs Nose: Normal Inspection Throat/Mouth: Normal Oropharynx Head: Atraumatic Neck: Normal Inspection, Supple, Non-Tender Respiratory/Chest: Lungs Clear Cardiovascular: Regular Rate, Rhythm, No Murmur GI/Abdominal Exam: Soft, Non-Tender Extremities: Normal Inspection, No Pedal Edema Neurological: Oriented, CN II-XII Intact, No Motor/Sensory Deficits, Other ( Seems to be a little bit listless but not lethargic) Psychiatric: Normal Affect Skin Exam: Warm, Dry Course - Vital Signs Last Recorded V/S: Last Vital Signs Temp 36.5 C 04/22/19 09:58 Pulse 68 04/22/19 12:12 Resp 16 04/22/19 12:12 BP 124/73 04/22/19 12:12 Pulse Ox 99 04/22/19 12:12 - Orders/Labs/Meds Orders: Active Orders 24 hr Category Date Time Status EKG Documentation Completion [RC] ASDIRECTED Care 04/22/19 11:03 Active Saline Lock Insert [OM.PC] Urgent Oth 04/22/19 11:02 Ordered EKG 12 Lead [EK] Urgent Ther 04/22/19 11:02 Ordered Labs: Laboratory Tests 04/22/19 04/22/19 04/22/19 Range/Units 11:09 11:09 11:09 WBC 12.1 H (4.5-11.0) K/uL RBC 4.63 (4.30-5.90) M/uL Hgb 14.7 (12.0-15.0) g/dL Hct 44.0 (40.0-54.0) % MCV 95 (80-98) fL MCH 32 H (27-31) pg MCHC 33 (32-36) % Plt Count 266 (150-400) K/uL Neut % (Auto) 72 H (36-66) % Lymph % (Auto) 17 L (24-44) % [place] % (Auto) 9 H (2-6) % Eos % (Auto) 2 (2-4) % Baso % (Auto) 0 (0-1) % Sodium 139 L (140-148) mmol/L Potassium 2.7 L* (3.6-5.2) mmol/L Chloride 98 L (100-108) mmol/L Carbon Dioxide 29 (21-32) mmol/L Anion Gap 14.7 H (5.0-14.0) mmol/L BUN 12 (7-18) mg/dL Creatinine 1.0 (0.8-1.3) mg/dL Est Cr Clr Drug Dosing 69.61 mL/min Estimated GFR (MDRD) > 60 (>60) Glucose 123 H (74-106) mg/dL Calcium 9.4 (8.5-10.1) mg/dL Total Bilirubin 0.5 (0.2-1.0) mg/dL AST 17 (15-37) U/L ALT 29 (12-78) U/L Alkaline Phosphatase 57 (46-116) U/L Total Protein 7.4 (6.4-8.2) g/dL Albumin 3.7 (3.4-5.0) g/dL Globulin 3.7 H (2.3-3.5) g/dL Albumin/Globulin Ratio 1.0 L (1.2-2.2) Amylase 56 (25-115) U/L Lipase 71 L (73-393) U/L Urine Color Urine Appearance Urine pH (4.5-8.0) Ur Specific [place] (1.008-1.030) Urine Protein (NEGATIVE) mg/dL Urine Glucose (UA) (NEGATIVE) mg/dL Urine Ketones (NEGATIVE) mg/dL Urine Occult Blood (NEGATIVE) Urine Nitrite (NEGAITVE) Urine Bilirubin (NEGATIVE) Urine Urobilinogen (NORMAL) mg/dL Ur Leukocyte Esterase (NEGATIVE) Urine RBC (0-5) Urine WBC (0-5) Ur Epithelial Cells Amorphous Sediment Urine Bacteria Urine Mucus Urine Opiates Screen (NEGATIVE) Ur Oxycodone Screen (NEGATIVE) Urine Methadone Screen (NEGATIVE) Ur Propoxyphene Screen (NEGATIVE) Ur Barbiturates Screen (NEGATIVE) Ur Tricyclics Screen (NEGATIVE) Ur Phencyclidine Scrn (NEGATIVE) Ur Amphetamine Screen (NEGATIVE) U Methamphetamines Scrn (NEGATIVE) Urine MDMA Screen (NEGATIVE) U Benzodiazepines Scrn (NEGATIVE) U Cocaine Metab Screen (NEGATIVE) U Marijuana (THC) Screen (NEGATIVE) 04/22/19 04/22/19 Range/Units 13:18 13:18 WBC (4.5-11.0) K/uL RBC (4.30-5.90) M/uL Hgb (12.0-15.0) g/dL Hct (40.0-54.0) % MCV (80-98) fL MCH (27-31) pg MCHC (32-36) % Plt Count (150-400) K/uL Neut % (Auto) (36-66) % Lymph % (Auto) (24-44) % [place] % (Auto) (2-6) % Eos % (Auto) (2-4) % Baso % (Auto) (0-1) % Sodium (140-148) mmol/L Potassium (3.6-5.2) mmol/L Chloride (100-108) mmol/L Carbon Dioxide (21-32) mmol/L Anion Gap (5.0-14.0) mmol/L BUN (7-18) mg/dL Creatinine (0.8-1.3) mg/dL Est Cr Clr Drug Dosing mL/min Estimated GFR (MDRD) (>60) Glucose (74-106) mg/dL Calcium (8.5-10.1) mg/dL Total Bilirubin (0.2-1.0) mg/dL AST (15-37) U/L ALT (12-78) U/L Alkaline Phosphatase (46-116) U/L Total Protein (6.4-8.2) g/dL Albumin (3.4-5.0) g/dL Globulin (2.3-3.5) g/dL Albumin/Globulin Ratio (1.2-2.2) Amylase (25-115) U/L Lipase (73-393) U/L Urine Color Yellow Urine Appearance Clear Urine pH 7.0 (4.5-8.0) Ur Specific [place] 1.015 (1.008-1.030) Urine Protein Negative (NEGATIVE) mg/dL Urine Glucose (UA) Normal (NEGATIVE) mg/dL Urine Ketones Negative (NEGATIVE) mg/dL Urine Occult Blood Negative (NEGATIVE) Urine Nitrite Negative (NEGAITVE) Urine Bilirubin Negative (NEGATIVE) Urine Urobilinogen Normal (NORMAL) mg/dL Ur Leukocyte Esterase Negative (NEGATIVE) Urine RBC Not seen (0-5) Urine WBC Not seen (0-5) Ur Epithelial Cells Not seen Amorphous Sediment Few Urine Bacteria Not seen Urine Mucus Not seen Urine Opiates Screen Negative (NEGATIVE) Ur Oxycodone Screen Negative (NEGATIVE) Urine Methadone Screen Negative (NEGATIVE) Ur Propoxyphene Screen Negative (NEGATIVE) Ur Barbiturates Screen Negative (NEGATIVE) Ur Tricyclics Screen Negative (NEGATIVE) Ur Phencyclidine Scrn Negative (NEGATIVE) Ur Amphetamine Screen Negative (NEGATIVE) U Methamphetamines Scrn Negative (NEGATIVE) Urine MDMA Screen Negative (NEGATIVE) U Benzodiazepines Scrn Negative (NEGATIVE) U Cocaine Metab Screen Negative (NEGATIVE) U Marijuana (THC) Screen Negative (NEGATIVE) Meds: Medications Discontinued Medications Generic Name Dose Route Start Last Admin Trade Name Freq PRN Reason Stop Dose Admin Potassium Chloride 20 meq/ 100 mls @ 50 mls/hr 04/22/19 11:45 04/22/19 11:54 Premix IV 04/22/19 13:44 50 mls/hr ONETIME ONE Administration Sodium Chloride 1,000 mls @ 999 mls/hr 04/22/19 11:44 04/22/19 11:54 Normal Saline IV 04/22/19 12:44 999 mls/hr .BOLUS ONE Administration Ondansetron HCl 4 mg 04/22/19 11:03 04/22/19 11:27 Zofran IVPUSH 04/22/19 11:04 4 mg ONETIME ONE Administration Ondansetron HCl 4 mg 04/22/19 12:56 04/22/19 13:01 Zofran IVPUSH 04/22/19 12:57 4 mg ONETIME ONE Administration Sodium Chloride 10 ml 04/22/19 11:03 04/22/19 11:27 Saline Flush FLUSH 10 ml ASDIRECTED PRN Administration Keep Vein Open - Radiology Interpretation Free Text/Narrative:: Chest x-ray showed no acute abnormalities - Re-Assessments/Exams Free Text/Narrative Re-Assessment/Exam: 04/22/19 16:33 An IV was established. This patient received 1 L IV normal saline. He also received Zofran 4 mg IV twice. He received 20 mEq of KCl in saline over 2 hours. Patient was made aware that his potassium is low. Before we finished the assessment and treatment of this patient he eloped from the emergency department. He did not tell us that he was leaving we just went in the room to find that he was gone. Departure - Departure Time of Disposition: 16:35 Disposition: Eloped 07 Condition: Undetermined Clinical Impression: Generalized body aches, Hypokalemia - Discharge Information Referrals: PCP,None [Primary Care Provider] - Forms: ED Department Discharge Additional Instructions: This patient left the emergency department prior to any instructions being given. - My Orders Last 24 Hours: My Active Orders 04/22/19 11:02 Saline Lock Insert [OM.PC] Urgent EKG 12 Lead [EK] Urgent 04/22/19 11:03 EKG Documentation Completion [RC] ASDIRECTED - Assessment/Plan Last 24 Hours: My Active Orders 04/22/19 11:02 Saline Lock Insert [OM.PC] Urgent EKG 12 Lead [EK] Urgent 04/22/19 11:03 EKG Documentation Completion [RC] ASDIRECTED
== END 2019-04-22 14:43 | disposition left against medical advice (07) ==
LOC: JP.ED 09:39
DX: E87.6 Hypokalemia (principal); E78.00 Pure hypercholesterolemia, unspecified; J44.9 Chronic obstructive pulmonary disease, unspecified; K21.9 Gastro-esophageal reflux disease without esophagitis; F41.9 Anxiety disorder, unspecified; F17.210 Nicotine dependence, cigarettes, uncomplicated; Z88.0 Allergy status to penicillin; Z88.6 Allergy status to analgesic agent; Z79.899 Other long term (current) drug therapy; Z53.20 Procedure and treatment not carried out because of patient's decision for unspecified reasons
CPT/HCPCS: 36415; 71046; 80053; 80305; 81001; 82150; 83690; 85025; 93005; 96365; 96366; 96375; 96376; 99284; J2405; J3480; J7030; 93010; 99283